=== PATIENT | male | born 1950 | race Caucasian/White ===

== ENCOUNTER 2016-10-25 04:22 | Day surgery (SDC) | payer BC ==
[2016-10-22 15:12] LABS: HEMOGLOBIN 15.6 g/dL (13.6-17.8)
--- NOTE | ~2016-10-25 | OP ---
Record Of Operation [facility] [address] [place]. [address] NAME: JACKSON ALARCON : 54 STATUS : [facility] UNIT#: [id number] AGE: 66 ADM/REG DATE : 10/25/16 MR#: [id number] REPORT SERV DATE: 10/29/16 DICTATED BY: JANICE ESPINOZA II DATE: 10/28/16 REPORT STATUS : Draft TRANSCRIBED BY: MODL DATE: 10/28/16 DATE OF PROCEDURE: 10/25/2016 PREOPERATIVE DIAGNOSES: 1. Right lower extremity radiculopathy. 2. History of L4-S1 laminectomy. 3. L2-L3, L3-L4 stenosis. POSTOPERATIVE DIAGNOSES: 1. Right lower extremity radiculopathy. 2. History of L4-S1 laminectomy. 3. L2-L3, L3-L4 stenosis. PROCEDURE: 1. Lumbar laminectomy, L2-L3 and L3-L4. 2. Use of the microscope and stereotactic spinal imaging. SURGEON: Janice Espinoza M.D. FLUIDS: 2 L lactated Ringer's. ESTIMATED BLOOD LOSS: 40 mL. DRAINS: No drains COMPLICATIONS: No complications. ANTIBIOTIC: Preoperatively. 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 He is a quite active individual who does have to walk a lot of property for his job. He is having some back pain, but predominantly classic right lower extremity radiculopathy. He reports having done well from his lumbar laminectomy remotely. DESCRIPTION OF PROCEDURE: After informed consent was obtained, the patient was brought to the operating room at his request and general anesthesia achieved. He was placed in the prone position and the back was prepped and draped in a sterile fashion. The stereotactic spinal pin was placed into the iliac crest on the left and the intraoperative CT scan completed. Using stereotactic using stereotactic guidance, the laminectomy was now initiated with the knife followed by use of the quadrant retractor. The minimally invasive quadrant retractor was placed at L2-L3 and L3-L4. The microscope was now in place again, and overall, I felt not only to the L3-L4 level appeared to be symptomatic, I also felt the L2-L3 level exhibited enough compression and also a disk herniation that it warranted intervention. Record Of Operation [facility] [address] [facility] [address] [place]. [address] NAME: JACKSON ALARCON : 54 STATUS : [facility] UNIT#: [id number] AGE: 66 ADM/REG DATE : 10/25/16 MR#: [id number] REPORT SERV DATE: 10/29/16 DICTATED BY: JANICE ESPINOZA II DATE: 10/28/16 REPORT STATUS : Draft TRANSCRIBED BY: MODL DATE: 10/28/16 At this point, the laminectomy was now performed at L3-L4 using the high-speed bur and the Kerrison rongeurs and the curettes. The laminectomy was now completed further with the use of the bur to take down the spinal laminar junction. The central canal was now well decompressed with the Kerrison rongeurs. The hypertrophic ligamentum flavum was removed and overall the L4 nerve root well decompressed in the lateral recess. At this point, we then worked up at the L2-L3 level where upon a similar procedure was performed. The laminectomy was once again completed and the L3 nerve root well decompressed. There was a small disk extrusion noted compressing the L3 nerve root. Overall, please note, the surgery was rather difficult because of the severity of the stenosis which was not fully appreciated on the MRI as well as some scarring from the previous dissection which had included dissection up to approximately L2. Overall, at this point, however, I was pleased with the decompression that we had achieved at L2-L3 and L3-L4. The irrigation was performed and hemostasis achieved followed by standard closure and the patient was then extubated and transferred to PACU in stable condition. SARAH/COURTNEY Janice Espinoza II, M.D. / [id number] CC: Janice Espinoza II, M.D.
[~2016-10-25 04:22] MED LIST: ALLEGRA180 PO; NORCO1 TA1 PO
== END 2016-10-25 16:21 | disposition home or self-care (01) ==
LOC: SDC 04:22
PROVIDERS: Orthopaedic Surgery
PROC: 01NB0ZZ Release Lumbar Nerve, Open Approach (ICD-10-PCS; principal; 2016-10-25 05:45)
DX: M48.06 Spinal stenosis, lumbar region (principal); M51.17 Intervertebral disc disorders with radiculopathy, lumbosacral region; M43.17 Spondylolisthesis, lumbosacral region; J30.2 Other seasonal allergic rhinitis; G89.29 Other chronic pain; Z90.49 Acquired absence of other specified parts of digestive tract; Z98.890 Other specified postprocedural states
CPT/HCPCS: 85014; 85018; 88304; 88311; 93005; A9270-GY; J0690; J2250; J2405; J2710; J3010